=== PATIENT | female | born 1990 | race Caucasian/White ===

== ENCOUNTER 2019-03-21 11:25 | Emergency (ER) | payer OTHER ==
[~2019-03-21] VITALS: Ht 170.1 cm; Wt 60.8 kg
[2019-03-21] MEDS ORDERED: CEPHALEXIN500 M1 PO (13:51)
== END 2019-03-21 13:57 | disposition home or self-care (01) ==
LOC: ED 11:25
DX: S93.402A Sprain of unspecified ligament of left ankle, initial encounter (principal); M79.672 Pain in left foot; X50.1XXA Overexertion from prolonged static or awkward postures, initial encounter; Y93.89 Activity, other specified; Y92.89 Other specified places as the place of occurrence of the external cause; Y99.8 Other external cause status